=== PATIENT | male | born 1990 | race Two or more races ===

== ENCOUNTER 2024-11-24 11:30 | Inpatient (IN) | payer OTHER ==
[~2024-11-24] VITALS: Ht 177.8 cm; Wt 129.2 kg
[2024-11-24] MEDS: KETOROLAC TROMETH 30 MG/ML 1ML VIAL IV ONE (11:55)
[2024-11-24] MEDS: SODIUM CHLORIDE 0.9% 1,000 ML IV ONE (11:56)
[2024-11-24 11:57] VITALS: PULSE 91; RESP 18; O2SAT 98
--- NOTE | 2024-11-24 11:57 | ED.PDOC ---
General HPI Comments 34y M who presents to the ED for chief complaint of R flank pain. Pt states he has been having R flank pain for the past 2 days, radiating to the R side of abdomen, constant, with no associated exacerbating or relieving factors. Pt has associated nausea but denies vomiting, diarrhea, dysuria, hematuria, fever, cough, or chills. Pt states he had this similar pain 2 months prior but states he ignored it and it went away but states the pain has intermittently been there for the past 2 years. Pt denies any past history of kidney stones. Pt otherwise denies any other symptoms at this time. Chief Complaint: Flank Pain Time Seen by MD: 11:56 Reviewed notes: Medications Allergies: Coded Allergies: NO KNOWN ALLERGIES (Unverified , 11/24/24) Information Source: Patient Mode of Arrival: Ambulatory Brought in by: self Constitutional: denies: chills, diaphoresis, fatigue, fever, malaise, sweats, weakness, others EENTM: denies: blurred vision, double vision, ear bleeding, ear discharge, ear drainage, ear pain, ear ringing, eye pain, eye redness, hearing loss, mouth pain, mouth swelling, nasal discharge, nose bleeding, nose congestion, nose pain, photophobia, tearing, throat pain, throat swelling, voice changes, others Respiratory: denies: cough, hemoptysis, orthopnea, SOB at rest, shortness of breath, SOB with excertion, stridor, wheezing, others Cardiovascular: denies: chest pain, dizzy spells, diaphoresis, Dyspnea on exertion, edema, irregular heart beat, left arm pain, lightheadedness, palpitations, PND, syncope, others Gastrointestinal: reports: abdominal pain; denies: abdomen distended, blood streaked bowels, constipated, diarrhea, dysphagia, difficulty swallowing, hematemesis, melena, nausea, poor appetite, poor fluid intake, rectal bleeding, rectal pain, vomiting, others Genitourinary: reports: flank pain; denies: burning, dysuria, frequency, hematuria, incontinence, penile discharge, penile sore, pain, testicle pain, testicle swelling, urgency, others Neurological: denies: dizziness, fainting, headache, left sided numbness, left sided weakness, numbness, paresthesia, pre-existing deficit, right sided numbness, right sided weakness, seizure, speech problems, tingling, tremors, weakness, others Musculoskeletal: denies: back pain, gout, joint pain, joint swelling, muscle pain, muscle stiffness, neck pain, others Integumetry: denies: bruises, change in color, change in hair/nails, dryness, laceration, lesions, lumps, rash, wounds, others Allergic/Immunocompromised: denies: Difficulty Healing, Frequent Infections, Hives, Itching, others Hematologic/Lymphatic: denies: anemia, blood clots, easy bleeding, easy bruising, swollen glands, others Endocrine: denies: excessive hunger, excessive sweating, excessive thirst, excessive urination, flushing, intolerance to cold, intolerance to heat, unexplained weight gain, unexplained weight loss, others Psychiatric: denies: anxiety, bipolar disorder, depression, hopeless, panic disorder, schizophrenia, sleepless, suicidal, others All Other Systems: Reviewed and Negative Physical Exam General Appearance: Moderate Distress HEENT: Normal ENT Inspection, Pharynx Normal, TMs Normal Neck: Full Range of Motion, Non-Tender, Normal, Normal Inspection Respiratory: Chest Non-Tender, Lungs Clear, No Accessory Muscle Use, No Respiratory Distress, Normal Breath Sounds Cardiovascular: No Edema, No JVD, No Murmur, No Gallop, Normal Peripheral Pulses, Regular Rate/Rhythm Breast Exam: Deferred Gastrointestinal: No Organomegaly, Non Tender, No Pulsatile Mass, Normal Bowel Sounds, Soft Genitalia: Deferred Pelvic: Deferred Rectal: Deferred Extremities: No calf tenderness, Normal capillary refill, Normal inspection, Normal range of motion, Non-tender, No pedal edema Musculoskeletal : Apperance: Normal Neurologic: Alert, primary care coordinator II-XII nml as Tested, No Motor Deficits, Normal Affect, Normal Mood, No Sensory Deficits Cerebellar Function: Normal Reflexes: Normal Skin: Dry, Normal Color, Warm Peripheral Pulses: 3+ Radial (R), 3+ Radial (L) Lymphatic: No Adenopathy Was a procedure done? Was a procedure done?: No Differential Diagnosis Kidney stone (Female): Musculoskeletal pain, Urinary obstruction, Urolithiasis Kidney stone (Male): Cholelithiasis, Pancreatitis, Pyelonephritis, Strain, Urinary tract infection X-Ray, Labs, Meds, VS Vital Signs Date Time Temp Pulse Resp B/P (MAP) Pulse Ox O2 Delivery O2 Flow Rate FiO2 11/24/24 11:57 91 18 98 Room Air* 0 21 11/24/24 11:57 97.7 91 18 154/80 (104) 98 97.7 11/24/24 11:48 90 11/24/24 11:42 98.7 103 20 130/91 (104) 95 Lab Test 11/24/24 12:02 Range/Units White Blood Count 9.9 4.4-10.8 10^3/uL Red Blood Count 4.95 4.5-5.90 10^6/uL Hemoglobin 15.6 13.5-17.5 g/dL Hematocrit 44.3 41.0-53.0 % Mean Corpuscular Volume 89.5 80.0-100.0 fL Mean Corpuscular Hemoglobin 31.4 28.0-32.0 pg Mean Corpuscular Hemoglobin Concent 35.1 32.0-36.0 g/dL Red Cell Distribution Width 12.9 11.8-14.3 % Platelet Count 321 140-450 10^3/uL Mean Platelet Volume 8.6 6.9-10.8 fL Neutrophils (%) (Auto) 65.2 37.0-80.0 % Lymphocytes (%) (Auto) 25.7 10.0-50.0 % Monocytes (%) (Auto) 7.4 0.0-12.0 % Eosinophils (%) (Auto) 1.2 0.0-7.0 % Basophils (%) (Auto) 0.5 0.0-2.0 % Neutrophils # (Auto) 6.5 1.6-8.6 10 ^3/uL Lymphocytes # (Auto) 2.5 0.4-5.4 10 ^3/uL Monocytes # (Auto) 0.7 0-1.3 10 ^3/uL Eosinophils # (Auto) 0.1 0-0.8 10 ^3/uL Basophils # (Auto) 0.1 0-0.2 10 ^3/uL Nucleated Red Blood Cells 0.0 % Troponin I High Sensitivity 3 L </=54 ng/L Current Medications Medications (Trade) Dose Ordered Sig/Raulito Route Start Time Stop Time Status Last Admin Sodium Chloride 1,000 ml @ 1,000 mls/hr Q1H ONCE IV 11/24/24 11:45 11/24/24 12:44 DC 11/24/24 11:56 Ketorolac Tromethamine (Toradol Injection) 30 mg ONCE ONCE IV 11/24/24 11:45 11/24/24 11:46 DC 11/24/24 11:55 Patient alert. Complaining of right flank pain. Denies chest pain. Vitals stable. Answering all questions. Establish intravenous access. Was given fluids. EKG reviewed does show some chronic changes. States that he has palpitations. Was given aspirin. Blood pressure elevated. Denies using any medication. Possibly will need echocardiogram. Stress test. Explained to the patient. Continue cardiac monitoring. Time of 1ST Reevaluation: 12:30 Reevaluation 1ST: Unchanged Patient Education/Counseling: Diagnosis, Treatment Family Education/Counseling: No Family Present Departure 1 Departure Time of Disposition: 13:14 Impression: Primary Impression: Palpitations Additional Impression: Hypertension Qualified Codes: I10 - Essential (primary) hypertension Disposition: ADMITTED INPATIENT Admit to: Med Surg Condition: Guarded Critical Care Note Critical Care Time?: No Stability Stability form required: No Heart Score Heart Score: Heart Score Response (Comments) Value History Slightly Suspicious 0 EKG Normal 0 Age <45 0 Risk Factors 1 or 2 risk factors 1 Troponin Normal limit 0 Total 1 I personally scribed for CARISA INIGUEZ MD ([email or web address]) on 11/24/24 at 11:57. Electronically submitted by Paul Kevin ([email or web address]). CARISA INIGUEZ MD Nov 24, 2024 11:57
[2024-11-24 12:18] LABS: Basophils # (auto) 0.1 10 ^3/uL (0-0.2); Basophils % (auto) 0.5 % (0.0-2.0); Eosinophils # (auto) 0.1 10 ^3/uL (0-0.8); Eosinophils % (auto) 1.2 % (0.0-7.0); Hematocrit 44.3 % (41.0-53.0); Hemoglobin 15.6 g/dL (13.5-17.5); Lymphocytes # (auto) 2.5 10 ^3/uL (0.4-5.4); Lymphocytes % (auto) 25.7 % (10.0-50.0); Mean Corpuscular Hemoglobin 31.4 pg (28.0-32.0); Mean Corpuscular Hgb Conc. 35.1 g/dL (32.0-36.0); Mean Corpuscular Volume 89.5 fL (80.0-100.0); Monocytes # (auto) 0.7 10 ^3/uL (0-1.3); Monocytes % (auto) 7.4 % (0.0-12.0); Neutrophils # (auto) 6.5 10 ^3/uL (1.6-8.6); Neutrophils % (auto) 65.2 % (37.0-80.0); Platelet Count (auto) 321 10^3/uL (140-450); Red Blood Cells 4.95 10^6/uL (4.5-5.90); Red Cell Distribution Width 12.9 % (11.8-14.3); White Blood Cell 9.9 10^3/uL (4.4-10.8)
[2024-11-24 13:51] LABS: Chloride 105 mmol/L (98-107); Potassium 3.8 mmol/L (3.5-5.1); Sodium 139 mmol/L (136-145)
[2024-11-24 13:52] LABS: Anion Gap 9 (5-15); Carbon Dioxide 25 mmol/L (20-31)
[2024-11-24 13:53] LABS: Calcium 10.2 mg/dL (8.7-10.4)
[2024-11-24 13:57] LABS: Blood Urea Nitrogen 16 mg/dL (9-23); Glucose 86 mg/dL (74-106)
[2024-11-24 14:00] LABS: Urine Bacteria FEW /hpf (None Seen); Urine Blood Negative /uL (Negative); Urine Clarity Clear (Clear); Urine Color Light-Yellow (Yellow); Urine Protein, UAD Negative (Negative); Urine Specific Gravity 1.022 (1.001-1.035); Urine Squamous Epithelial Cell FEW /hpf (<5); Urine Urobilinogen Normal (Negative); Urine WBC 11 /hpf (0 - 3); Urine pH 6.5 (5.0-9.0)
--- NOTE | 2024-11-24 16:10 | DVHHP2 ---
History of Present Illness Reason for Visit: Right flank pain History of Present Illness Ousmane Nobles is a 34-year-old male with no pertinent medical history who presents to the ED for flank pain radiating to his back sharp, intermittent 8/10 pain. Patient states that there are no relieving factors or aggravating f actors. Patient reports that he vapes, smokes marijuana, drinks on the weekends, and quit cocaine recently. Patient denies chest pain, fever, chills, nausea, vomiting, lightheadedness, weakness, and dizziness. Past Surgical History: None Family History: Other (Mom and dad with diabetes) Smoke: <1 pack per day ALCOHOL: occassional Drugs: Marijuana, Other (Quit cocaine recently) Lives: with Family Domestic Violence: Neg Review of Systems Constitutional: No: Fever, Chills, Sweats, Weakness, Malaise, Other Eyes: No: Pain, Vision change, Conjunctivae inflammation, Eyelid inflammation, Other, Redness ENT: No: Ear pain, Ear discharge, Nose pain, Nose discharge, Nose congestion, Mouth pain, Mouth swelling, Throat pain, Throat swelling, Other Respiratory: No: Cough, Dry, Shortness of breath, SOB with excertion, Wheezing, Hemoptysis, Pleuritic Pain, Sputum, Wheezing, Other Cardiovascular: No: Chest Pain, Palpitations, Orthopnea, Paroxysmal Noc. Dyspnea, Edema, Lt Headedness, Other Gastrointestinal: Abdominal Pain, Diarrhea; No: Nausea, Vomiting, Constipation, Melena, Hematochezia, Other Genitourinary: No Dysuria, No Frequency, No Incontinence, No Hematuria, No Retention, No Other Musculoskeletal: other (Right flank pain); No: neck pain, shoulder pain, arm pain, back pain, hand pain, leg pain, foot pain Skin: No: Rash, Lesions, Jaundice, Bruising, Other Neurological: No: Weakness, Numbness, Incoordination, Change in speech, Confusion, Seizures, Other Allergies: Coded Allergies: NO KNOWN ALLERGIES (Unverified , 11/24/24) Exam Vital Signs Vital Signs Date Time Temp Pulse Resp B/P (MAP) Pulse Ox O2 Delivery O2 Flow Rate FiO2 11/24/24 14:36 97.9 74 16 137/74 (95) 97 97.9 11/24/24 11:57 Room Air* 0 21 General Appearance: Alert, Oriented X3, Cooperative, No acute distress HEENT: Atraumatic, PERRLA, EOMI, Mucous membr. moist/pink Respiratory: Clear to auscultation, Normal air movement Cardiovascular: Regular rate, Normal S1, Normal S2, No murmurs Abdominal: Soft Extremities: No clubbing, No cyanosis, No edema, Normal pulses, No tenderness/swelling Skin: No rashes, No breakdown, No significant lesion Neuro: Normal gait, Normal speech, Strength at 5/5 X4 ext, Normal tone, Sensation intact Psych/Mental Status: Mental status NL, Mood NL Labs/Xrays Labs Test 11/24/24 13:11 11/24/24 12:02 Range/Units Urine Color Light-yellow Yellow Urine Clarity Clear Clear Urine pH 6.5 5.0-9.0 Urine Specific [place] 1.022 1.001-1.035 Urine Protein Negative Negative Urine Ketones Negative Negative Urine Blood Negative Negative /uL Urine Nitrite Negative Negative Urine Bilirubin Negative Negative Urine Urobilinogen Normal Negative mg/dL Urine Leukocyte Esterase 1+ Negative /uL Urine RBC None seen 0 - 3 /hpf Urine WBC 11 0 - 3 /hpf Urine Squamous Epithelial Cells Few <5 /hpf Urine Bacteria Few H None Seen /hpf Urine Glucose Normal Normal mg/dL White Blood Count 9.9 4.4-10.8 10^3/uL Red Blood Count 4.95 4.5-5.90 10^6/uL Hemoglobin 15.6 13.5-17.5 g/dL Hematocrit 44.3 41.0-53.0 % Mean Corpuscular Volume 89.5 80.0-100.0 fL Mean Corpuscular Hemoglobin 31.4 28.0-32.0 pg Mean Corpuscular Hemoglobin Concent 35.1 32.0-36.0 g/dL Red Cell Distribution Width 12.9 11.8-14.3 % Platelet Count 321 140-450 10^3/uL Mean Platelet Volume 8.6 6.9-10.8 fL Neutrophils (%) (Auto) 65.2 37.0-80.0 % Lymphocytes (%) (Auto) 25.7 10.0-50.0 % Monocytes (%) (Auto) 7.4 0.0-12.0 % Eosinophils (%) (Auto) 1.2 0.0-7.0 % Basophils (%) (Auto) 0.5 0.0-2.0 % Neutrophils # (Auto) 6.5 1.6-8.6 10 ^3/uL Lymphocytes # (Auto) 2.5 0.4-5.4 10 ^3/uL Monocytes # (Auto) 0.7 0-1.3 10 ^3/uL Eosinophils # (Auto) 0.1 0-0.8 10 ^3/uL Basophils # (Auto) 0.1 0-0.2 10 ^3/uL Nucleated Red Blood Cells 0.0 % Sodium Level 139 136-145 mmol/L Potassium Level 3.8 3.5-5.1 mmol/L Chloride Level 105 98-107 mmol/L Carbon Dioxide Level 25 20-31 mmol/L Anion Gap 9 5-15 Blood Urea Nitrogen 16 9-23 mg/dL Creatinine 0.89 0.700-1.30 mg/dL Glomerular Filtration Rate Calc 117 >90 mL/min BUN/Creatinine Ratio 18.0 10.0-20.0 Serum Glucose 86 74-106 mg/dL Calcium Level 10.2 8.7-10.4 mg/dL Troponin I High Sensitivity 3 L </=54 ng/L Assessment/Plan Assessment/Plan Assessment/Plan: Intractable flank pain likely due to UTI Intractable abdominal pain UA Pain management NS EKG Troponin negative CT abdomen and pelvis Ultrasound kidney UDS IV antibiotics-ceftriaxone Labs A.m. labs Morbid obesity Counseled patient on lifestyle modifications, diet, and exercise Polysubstance abuse Counseled patient on cessation of polysubstance use FEN/PPX Diet HL DVT prophylaxis not indicated patient ambulating PUD prophylaxis not indicated patient no history of GERD or GI bleed Admit to med surg Patient states he doesn't take any home medications Discussed plan of care with patient and nurse Plan discussed with: Patient My Orders Orders - MYA SHOEMAKER Procedure Category Date Status Time Ct Ab Pel Wo Con-No CT 11/24/24 Logged Oral Or Iv 16:01 Kidney US 11/24/24 Logged 16:01 Drug Screen LAB 11/24/24 Logged 16:01 Date of Service: Nov 24, 2024 Billing Provider: MYA SHOEMAKER Common Visit Codes: [id number] INP/OBS CARE (HIGH) MYA SHOEMAKER Nov 24, 2024 16:10
[2024-11-24] MEDS ORDERED: ONDANSETRON HCL 4 MG/2 ML VIAL IV PRN (16:15)
[2024-11-24] MEDS ORDERED: MORPHINE SULFATE INJ 2 MG/ml SYRG IV PRN (16:15)
[2024-11-24] MEDS ORDERED: ACETAMINOPHEN 325 MG TAB PO PRN (16:15)
--- NOTE | 2024-11-24 16:25 | DVH ---
Exam: CT CT AB PEL WO CON-NO ORAL OR IV History: abd pain Comparison Study: None available at time of dictation. TECHNIQUE: Multidetector CT of the abdomen and pelvis without contrast. Axial, coronal and sagittal m ultiplanar reformats were obtained from the axial data set by the technologist. Radiation Dose Information: CT Dose: CTDI volume is 26.35 mGy. Dose-length product is 1409.56 mGy*cm FINDINGS: Bibasilar atelectasis. Left posterior diaphragmatic small fat containing hernia. Partially visualized heart is unremarkable. Liver, spleen, gallbladder, pancreas and adrenal glands are unremarkable. Kidneys, ureters and urinary bladder are unremarkable. Prostate is unremarkable. Stomach is unremarkable. Small bowel loops are unremarkable. Appendix is unremarkable. Moderate to l arge amount of fecal material within the colon. Minimal wall thickening of the ascending colon. No evidence of intraperitoneal free air or free fluid. No evidence of aortic aneurysm. No significant lymphadenopathy. Small fat containing umbilical hernia. Tiny fat containing left inguinal hernia. Soft tissues are unr emarkable. No destructive osseous lesions are noted. IMPRESSION: Constipation. Minimal wall thickening of the ascending colon. Correlate for mild colitis.
--- NOTE | 2024-11-24 16:34 | DVH ---
US KIDNEY HISTORY: right flank pain COMPARISON: None TECHNIQUE: Transverse and longitudinal grayscale and color Doppler images were obtained of the kidney s and bladder. FINDINGS: Right kidney: Right kidney measures up to 11.8 cm in length with normal cortical thickness and echogenicity. No hyd ronephrosis or renal calculi. Left kidney: Left kidney measures up to 10.8 cm in length with normal cortical thickness and echogenicity. No hydr onephrosis or renal calculi. Bladder: Urinary bladder is unremarkable with urinary bladder volume of 374 cc. Other: None. IMPRESSION: Normal renal ultrasound. The urinary bladder is unremarkable.
[2024-11-24] MEDS: cefTRIAXone 1GM/50ML D5W 50 ML IV ONE (17:03)
[2024-11-24 17:15] LABS: Cannabinoid Screen, Urine Pos (NEGATIVE)
[2024-11-24 17:22] LABS: Amphetamine Screen, Urine Neg (NEGATIVE); Barbiturate Scree,Urine Neg (NEGATIVE); Benzodiazephine Screen, Urine Neg (NEGATIVE); Cocaine Screen, Urine Neg (NEGATIVE); Opiate Scree,Urine Neg (NEGATIVE); Phencyclidine Screen, Urine Neg (NEGATIVE)
[2024-11-24 18:40] VITALS: BP 146/98; PULSE 67; RESP 20; TEMP 97.7; O2SAT 97
[2024-11-24 20:00] VITALS: PULSE 52; RESP 20
[2024-11-24 21:00] VITALS: BP 142/98; PULSE 52; RESP 20; TEMP 97.2; O2SAT 97
[2024-11-24] MEDS: HYDROcodone-ACET 5/325MG TAB PO PRN (22:28)
[2024-11-25] VITALS (7 sets, daily range): BP systolic 121–134; BP diastolic 77–91; PULSE 59–67; RESP 17–19; TEMP 97.8; O2SAT 95–98
[2024-11-25 06:24] LABS: Basophils # (auto) 0 10 ^3/uL (0-0.2); Basophils % (auto) 0.3 % (0.0-2.0); Eosinophils # (auto) 0.1 10 ^3/uL (0-0.8); Eosinophils % (auto) 1.2 % (0.0-7.0); Hematocrit 42.1 % (41.0-53.0); Hemoglobin 14.6 g/dL (13.5-17.5); Mean Corpuscular Hemoglobin 31.1 pg (28.0-32.0); Mean Corpuscular Hgb Conc. 34.8 g/dL (32.0-36.0); Mean Corpuscular Volume 89.5 fL (80.0-100.0); Monocytes # (auto) 0.7 10 ^3/uL (0-1.3); Monocytes % (auto) 8.2 % (0.0-12.0); Neutrophils # (auto) 5.2 10 ^3/uL (1.6-8.6); Neutrophils % (auto) 65.3 % (37.0-80.0); Platelet Count (auto) 287 10^3/uL (140-450); Red Cell Distribution Width 13.1 % (11.8-14.3)
--- NOTE | 2024-11-25 07:18 | ECG ---
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
[2024-11-25] MEDS: cefTRIAXone 1GM/50ML D5W 50 ML IV SCH (09:11)
[2024-11-25] MEDS ORDERED: CYCL-614 PO (15:57)
[2024-11-25] MEDS ORDERED: PSYL0.525 PO (15:57)
--- NOTE | 2024-11-25 21:52 | DVHDSRES ---
Discharge Summary Date of Admission Resident Creating Document: LAWRENCE LAFLEUR Nov 24, 2024 at 16:02 Date of Discharge: Nov 25, 2024 Labs/Diagnostic Data: Laboratory Results Test 11/25/24 05:51 11/24/24 13:11 11/24/24 12:02 White Blood Count 8.0 10^3/uL (4.4-10.8) Red Blood Count 4.70 10^6/uL (4.5-5.90) Hemoglobin 14.6 g/dL (13.5-17.5) Hematocrit 42.1 % (41.0-53.0) Mean Corpuscular Volume 89.5 fL (80.0-100.0) Mean Corpuscular Hemoglobin 31.1 pg (28.0-32.0) Mean Corpuscular Hemoglobin Concent 34.8 g/dL (32.0-36.0) Red Cell Distribution Width 13.1 % (11.8-14.3) Platelet Count 287 10^3/uL (140-450) Mean Platelet Volume 8.9 fL (6.9-10.8) Neutrophils (%) (Auto) 65.3 % (37.0-80.0) Lymphocytes (%) (Auto) 25.0 % (10.0-50.0) Monocytes (%) (Auto) 8.2 % (0.0-12.0) Eosinophils (%) (Auto) 1.2 % (0.0-7.0) Basophils (%) (Auto) 0.3 % (0.0-2.0) Neutrophils # (Auto) 5.2 10 ^3/uL (1.6-8.6) Lymphocytes # (Auto) 2.0 10 ^3/uL (0.4-5.4) Monocytes # (Auto) 0.7 10 ^3/uL (0-1.3) Eosinophils # (Auto) 0.1 10 ^3/uL (0-0.8) Basophils # (Auto) 0 10 ^3/uL (0-0.2) Nucleated Red Blood Cells 0.0 % Urine Color Light-yellow (Yellow) Urine Clarity Clear (Clear) Urine pH 6.5 (5.0-9.0) Urine Specific [place] 1.022 (1.001-1.035) Urine Protein Negative (Negative) Urine Ketones Negative (Negative) Urine Blood Negative /uL (Negative) Urine Nitrite Negative (Negative) Urine Bilirubin Negative (Negative) Urine Urobilinogen Normal mg/dL (Negative) Urine Leukocyte Esterase 1+ /uL (Negative) Urine RBC None seen /hpf (0 - 3) Urine WBC 11 /hpf (0 - 3) Urine Squamous Epithelial Cells Few /hpf (<5) Urine Bacteria Few /hpf (None Seen) Urine Glucose Normal mg/dL (Normal) Urine Opiates Screen Neg (NEGATIVE) Urine Fentanyl Screen Neg (NEGATIVE) Urine Barbiturates Screen Neg (NEGATIVE) Urine Phencyclidine Screen Neg (NEGATIVE) Urine Amphetamines Screen Neg (NEGATIVE) Urine Benzodiazepines Screen Neg (NEGATIVE) Urine Cocaine Screen Neg (NEGATIVE) Urine Cannabinoids Screen Pos (NEGATIVE) Sodium Level 139 mmol/L (136-145) Potassium Level 3.8 mmol/L (3.5-5.1) Chloride Level 105 mmol/L (98-107) Carbon Dioxide Level 25 mmol/L (20-31) Anion Gap 9 (5-15) Blood Urea Nitrogen 16 mg/dL (9-23) Creatinine 0.89 mg/dL (0.700-1.30) Glomerular Filtration Rate Calc 117 mL/min (>90) BUN/Creatinine Ratio 18.0 (10.0-20.0) Serum Glucose 86 mg/dL (74-106) Calcium Level 10.2 mg/dL (8.7-10.4) Troponin I High Sensitivity 3 ng/L (</=54) Other Laboratory Tests 11/25/24 05:51 11/24/24 12:02 Brief Hx & Hospital Course: 34-year-old male with no pertinent medical history who presents to the ED for flank pain radiating to his back sharp, intermittent 8/10 pain. Patient mentioned that he had similar complaints weeks ago that resolved spontaneously. He mentioned associated constipation and right upper quadrant pain, that is partially relieved by passing stools. He also mentioned having diarrhea and constipation for last two years. Urine studies revealed possible UTI. CT abdomen pelvis revealed Constipation. Minimal wall thickening of the ascending colon. Correlate for mild colitis. Urine drug screen was positive for cannabinoids. Patient was given IV ceftriaxone. Patient mentioned significant improvement in his symptoms. Patient was counseled about marijuana cessation. At the time of discharge, patient had stable vitals, no new complaints. Discharge plan was discussed with the patient patient advised to follow up with PCP/DC clinic within one week. Patient was prescribed with Metamucil and cyclobenzaprine. Condition at Discharge: Stable Final Diagnosis/Problems List Mild colitis ? GASTRITIS Marijuana use disorder Constipation ? IBS ? UTI Discharge Disposition: Home Discharge Instruct/Medications Diet: See Comment Diet comment: fibre diet Activity: No Restrictions, As Tolerated Follow Up/Referral: f/u with DC clinic Discharge Statement: "Patient was advised to return to the ER or call 911 if any headaches, dizziness, shortness of breath, chest pain, abdominal pain, bleeding, fevers, or worsening of medical condition. Patient was counseled about treatment plan, medications, possible side effects, patientverbalized understanding. All questions were answered to the best of my ability. This discharge took greater then 30 minutes in planning, reviewing documentation, counseling the patient, and discussing with other team members." ASSESSMENT ASSESSMENT Assessment GASTRITIS Date of Service: Nov 25, 2024 Billing Provider: TIMOTEO VELEZ MD Common Visit Codes: 09395-YJP/OBS DISCH DAY >30min LAWRENCE LAFLEUR RESIDENT Nov 25, 2024 21:52 TIMOTEO VELEZ MD Nov 29, 2024 15:01
== END 2024-11-25 18:32 | disposition home or self-care (01) | DRG 690 ==
LOC: ER 11:30 → OVERFLOW 16:02 → EAST 18:26
DX: N30.00 Acute cystitis without hematuria (principal); Z68.41 Body mass index [BMI] 40.0-44.9, adult; K29.70 Gastritis, unspecified, without bleeding; K58.9 Irritable bowel syndrome, unspecified; K59.00 Constipation, unspecified; E66.01 Morbid (severe) obesity due to excess calories; I10 Essential (primary) hypertension; F19.10 Other psychoactive substance abuse, uncomplicated; Z83.3 Family history of diabetes mellitus; Z87.891 Personal history of nicotine dependence; Z79.899 Other long term (current) drug therapy
CPT/HCPCS: 36415; 74176; 76775; 80048; 80307; 81001; 84484; 85025; 93005; G0378; J1885